=== PATIENT | female | born 1965 | race Hispanic/Latino ===

== ENCOUNTER 2017-07-10 06:45 | Day surgery (SDC) | payer OTHER ==
[2017-07-06 14:00] VITALS: BP 125/89
[2017-07-06 14:24] LABS: BASOPHILS % (AUTO) 0.7 % (0.0-5.0); EOSINOPHILS % (AUTO) 2.1 % (0.0-8.0); HEMATOCRIT 36.7 % (36-48); LYMPHOCYTES % (AUTO) 12.3 % (21.0-51.0); MEAN CORPUSCULAR HEMOGLOBIN 31.6 pg (27.0-33.0); MEAN CORPUSCULAR HGB CONC 34.5 g/dL (32.0-36.0); MEAN CORPUSCULAR VOLUME 91.5 fL (79-99); MONOCYTES % (AUTO) 6.2 % (3.0-13.0); NEUTROPHILS % (AUTO) 78.7 % (40.0-77.0); PLATELET COUNT (AUTO) 410 K/uL (130-400); RED BLOOD CELL COUNT(AUTO) 4.01 MIL/uL (4.00-5.50); RED CELL DISTRIBUTION WIDTH 12.9 % (11.0-15.5); WHITE BLOOD COUNT (AUTO) 7.4 K/uL (4.8-10.8)
[2017-07-06 14:27] LABS: APPEARANCE,URINE Clear (CLEAR); BILIRUBIN,URINE Negative (NEGATIVE); COLOR,URINE Yellow (YELLOW); GLUCOSE, URINE (UA) Negative (NEGATIVE); KETONES,URINE Negative (NEGATIVE); LEUKOCYTE ESTERASE ,URINE Trace (NEGATIVE); NITRATE,URINE Negative (NEGATIVE); OCCULT BLOOD,URINE Negative (NEGATIVE); PROTEIN,URINE Negative (NEGATIVE)
[2017-07-06 14:41] LABS: BACTERIA,URINE None Seen /HPF (None Seen); RBC,URINE None Seen /HPF (0-1); SQUAMOUS EPITHELIAL CELL,UR 0-2 /LPF (0-2); WBC,URINE 0-1 /HPF (0-1)
[2017-07-10] VITALS (19 sets, daily range): BP systolic 106–130; BP diastolic 58–91
[~2017-07-10] VITALS: Ht 165.1 cm; Wt 86.8 kg
[~2017-07-10 06:45] MED LIST: AMLODIPINE PO; CEFAZOLIN SODIUM 1 GM VIAL IVP SCH; IBUP-2077 PO; LISINOPRIL PO; METOPROLOL PO; PROZAC PO; TYL3 PO; XANAX PO; [UNRECOGNIZED DRUG - OTHER] PO
[2017-07-10] MEDS: LACTATED RINGERS 1000ML 1,000 ML IV ONE (08:26)
[2017-07-10] MEDS ORDERED: PROPOFOL 10 MG/ML 20ML VIAL IV ONE ×2 (09:01→09:52)
[2017-07-10] MEDS ORDERED: MIDAZOLAM HCL 1 MG/ML 2ML VIAL ONE (09:02)
[2017-07-10] MEDS ORDERED: FENTANYL CITRATE PF 50 MCG/1 ML 5ML AMP IV ONE (09:02)
[2017-07-10] MEDS ORDERED: ONDANSETRON HCL 4 MG/2 ML VIAL ONE (09:45)
[2017-07-10] MEDS ORDERED: LIDOCAINE PF 2% 5ML ABBOJECT ONE (09:45)
[2017-07-10] MEDS ORDERED: SODIUM CHLORIDE 0.9% 10 ML VIAL ONE (09:45)
[2017-07-10] MEDS ORDERED: DEXAMETHASONE SOD PHOSPHATE 10MG/ML 1ML VIAL ONE (09:45)
[2017-07-10] MEDS ORDERED: LIDOCAINE HCL-MPF 1% 5ML AMP IJ ONE (09:45)
[2017-07-10] MEDS ORDERED: LIDOCAINE HCL 4% LTA SOL 4 ML VIAL ONE (09:45)
[2017-07-10] MEDS ORDERED: NEOSTIGMINE 5MG/5ML SYR IV ONE (09:45)
[2017-07-10] MEDS ORDERED: ROCURONIUM BROMIDE 10MG/1ML 5ML VL ONE (09:45)
[2017-07-10] MEDS: RACEPINEPHRINE HCL 2.25% 0.5 ML NEB SOLN ONE (10:03)
[2017-07-10] MEDS: MEPERIDINE-PF 50 MG/ML SYG ONE (10:21)
== END 2017-07-10 12:05 | disposition home or self-care (01) ==
LOC: SUH 06:45 → DAH 06:45 → SUH 12:05
PROVIDERS: ATTEND Surgery
DX: K81.1 Chronic cholecystitis (principal); K82.8 Other specified diseases of gallbladder; F41.9 Anxiety disorder, unspecified; Z68.31 Body mass index [BMI] 31.0-31.9, adult; F32.9 Major depressive disorder, single episode, unspecified; M79.7 Fibromyalgia; I10 Essential (primary) hypertension; E66.9 Obesity, unspecified; M06.9 Rheumatoid arthritis, unspecified; Z79.899 Other long term (current) drug therapy; Z82.49 Family history of ischemic heart disease and other diseases of the circulatory system
CPT/HCPCS: 36415; 47562; 81001; 85025; 88304; 94640; A4450; A4600; A4649; A4930 ×2; C1769 ×4; J1100; J2001; J2175; J2250; J2405; J2704 ×2; J2710; J3010; J3490 ×2; J7030; J7120 ×2

== ENCOUNTER 2018-03-07 14:00 | Emergency (ER) | payer OTHER ==
[~2018-03-07 14:00] MED LIST changes: -CEFAZOLIN SODIUM 1 GM VIAL IVP SCH
== END 2018-03-07 17:20 | disposition home or self-care (01) ==
LOC: EDH 14:00
DX: S00.83XA Contusion of other part of head, initial encounter (principal); I10 Essential (primary) hypertension; V49.49XA Driver injured in collision with other motor vehicles in traffic accident, initial encounter; Y93.89 Activity, other specified; Y92.89 Other specified places as the place of occurrence of the external cause; Y99.8 Other external cause status
CPT/HCPCS: 70450; 70486